=== PATIENT | female | born 2000 | race Two or more races ===

== ENCOUNTER 2020-10-21 21:49 | Emergency (ER) | payer BC, MEDICAID ==
[~2020-10-21] VITALS: Ht 167.6 cm; Wt 60.0 kg
--- NOTE | 2020-10-21 22:26 | NUR ---
PT CAME IN [place]. PT REPORTS SHE IS 3 WEEKS . "I HAVE SOME MINOR CRAMPING AND SOME SMALL AMOUNT OF BLEEDING"
[2020-10-21 22:54] LABS: BASOPHILS % (AUTO) 1 % (0-1); EOSINOPHILS % (AUTO) 2 % (1-7); LYMPHOCYTES % (AUTO) 20 % (22-44); MEAN CORPUSCULAR HEMOGLOBIN 29.8 pg (27.0-34.8); MONOCYTES % (AUTO) 5 % (2-9); NEUTROPHILS % (AUTO) 72 % (42-75); PLATELET COUNT 259 x10^3/uL (130-400); RED BLOOD COUNT 4.33 x10^6/uL (3.82-5.3); RED CELL DISTRIBUTION WIDTH 14.4 % (9.6-15.2)
[2020-10-21 22:55] LABS: MICROSCOPIC NOT IND
[2020-10-21 22:57] LABS: MD NO
[2020-10-21 22:59] VITALS: BP 122/60
--- NOTE | 2020-10-21 23:00 | NUR ---
PT RESTING IN [facility]. VSS. NAD
[2020-10-21 23:01] LABS: ALBUMIN 3.7 g/dL (3.4-5.0); ANION GAP 7 mmol/L (5-15); CALCIUM 8.6 mg/dL (8.5-10.1); CHLORIDE 110 mmol/L (98-107)
[2020-10-21 23:19] LABS: CREATININE 0.65 mg/dL (0.55-1.02)
== END 2020-10-22 00:06 | disposition home or self-care (01) ==
LOC: ED 23:46
DX: O20.0 Threatened abortion (principal); Z3A.01 Less than 8 weeks gestation of pregnancy
CPT/HCPCS: 36415; 76801; 80048; 81003; 82040; 84702; 85025; 86901; 99284